=== PATIENT | female | born 1985 | race Caucasian/White ===

== ENCOUNTER 2020-03-17 21:58 | Emergency (ER) | payer SELFPAY ==
[2020-03-17 22:05] VITALS: BP 137/92; PULSE 102; RESP 17; TEMP 36.6; O2SAT 100; BMI 29.5
--- NOTE | 2020-03-17 22:39 | ED_ITS ---
HPI - Wound/Laceration General Chief Complaint: Wound/Laceration Stated Complaint: cut finger Time Seen by Provider: 03/17/20 22:09 Source: patient and family Mode of arrival: Ambulatory Limitations: no limitations History of Present Illness HPI narrative: Patient here with nova. Complains of laceration to the left ring finger 11 hours ago. Using a knife to cut bait. Denies any numbness or tingling. Is in need of tetanus shot. Denies does note test. Bleeding controlled. Based visualized. No foreign body no tendon or muscle or bony injury seen. 1.5 cm linear laceration just proximal to the PIP joint laterally Related Data Previous Rx's Medication Instructions Recorded cephalexin 500 mg PO TID #15 cap 03/17/20 Allergies Allergy/AdvReac Type Severity Reaction Status Date / Time No Known Drug Allergies Allergy Verified 03/17/20 22:07 Review of Systems Review of Systems Narrative: GENERAL: Denies chills, fatigue, malaise, fever, sweats. MUSCULOSKELETAL: denies weakness, joint pain, or bony pain SKIN: Denies rash, skin lesions NEUROLOGIC: Denies weakness, numbness or tingling PSYCHIATRIC: No concerning psychosocial issues. ROS Unobtainable: All systems reviewed & are unremarkable except as noted in HPI and below Patient History Social History Smoking Status: Current every day smoker Smoking Status: Current every day smoker alcohol intake frequency: holidays/special occasions only Substance Use Type: does not use Exam Narrative Exam Narrative: GENERAL: patient appears stated age. Well-nourished, well- developed patient, in no distress, not toxic HEAD: Atraumatic. Normocephalic. EXTREMITIES: No edema or joint tenderness. Examination left hand. There is isolated injury to the left ring finger. 1.5 cm superficial laceration laterally just proximal to the PIP joint of the ring finger. Bleeding controlled. Hemostasis obtained. Bloodless field. Based visualized. No foreign body no bone or tendon or muscle injury seen. Has full flexion extension actively isolated MCP and PIP and PIP joints. Light touch intact to finger NEURO: AOx4. SKIN: No rash or erythema of visible areas PSYCH: Not anxious, is cooperative Initial Vital Signs Initial Vital Signs: Vital Signs Temperature 97.8 F 03/17/20 22:05 Pulse Rate 102 H 03/17/20 22:05 Respiratory Rate 17 03/17/20 22:05 Blood Pressure 137/92 H 03/17/20 22:05 Pulse Oximetry 100 03/17/20 22:05 Procedures Laceration Repair Laceration 1: Site: other (Left ring finger) Side (If applicable): left Size (cm): 1.5 Description: linear Depth: simple, single layer Local Anesthetic: lidocaine 1% Amount of anesthesia used (mL): 2 Pre-repair: wound explored, irrigated extensively and deep structures intact Skin layer closed with: nylon Size (cm): 5-0 Number of sutures: 4 Technique: simple, interrupted Course Orders Ordered: Discontinued Medications Bacitracin (Bacitracin) 1 applic TOP NOW ONE Stop: 03/17/20 22:40 Last Admin: 03/17/20 22:47 Dose: 1 applic Documented by: LAN Cephalexin HCl (Keflex) 500 mg PO NOW ONE Stop: 03/17/20 22:39 Last Admin: 03/17/20 22:47 Dose: 500 mg Documented by: LAN Diphtheria/Tetanus/Acell Pertussis (Adacel) 0.5 ml IM .ONCE ONE Stop: 03/17/20 22:39 Last Admin: 03/17/20 22:47 Dose: 0.5 ml Documented by: LAN Vital Signs Vital signs: Vital Signs - 8 hr 03/17/20 22:05 Temperature 97.8 F Pulse Rate 102 H Respiratory Rate 17 Blood Pressure 137/92 H Pulse Oximetry 100 MDM - Wound/Laceration Differential Diagnosis Differential diagnosis: Likely laceration MDM Narrative Medical decision making narrative: No imaging indicated. Low suspicion for foreign body or bone injury. Discharge Plan Departure Patient Disposition: Home Clinical Impression: Laceration Discharge Date/Time: 03/17/20 22:55 Instructions: DI for Laceration Repair Activity Restrictions/Additional Instructions: See family doctor in 7-9 days or return here for removal of 4 stitches in left ring finger. Change dressing twice a day with warm soap and water and then topical antibiotic. Place in bulky dressing to prevent movement the finger. Return if worse or if any fever chills or discharge from the wound or discoloration of the finger. Return if any questions or concerns. Prescriptions: New cephalexin 500 mg capsule 500 mg PO TID Qty: 15 RF: 0 Referrals: [facility] [Outside]
[2020-03-17] MEDS: cephALEXin 250 MG CAPSULE 500 MG PO (22:47)
[2020-03-17] MEDS: TET,DIPH,PERTUSS(ACELL),VAC/PF 0.5 ML SYRINGE IM (22:47)
[2020-03-17] MEDS: BACITRACIN OINT 0.9 GM PCKT 1 APPLIC TOP (22:47)
== END 2020-03-17 22:55 | disposition home or self-care (01) ==
PROVIDERS: Emergency Provider Emergency Medicine
DX: S61.215A Laceration without foreign body of left ring finger without damage to nail, initial encounter (principal); W26.0XXA Contact with knife, initial encounter; Z23 Encounter for immunization
CPT/HCPCS: 12001; 90471; 99283; 99284; 90715

== ENCOUNTER → 2023-08-12 17:41 | Outpatient (CLI) | payer MEDICAID, SELFPAY ==
--- NOTE | 2023-08-12 17:45 | DI.RAD.S_ITS ---
PROCEDURE: XR KNEE LT 3V INDICATIONS: fall 4 weeks ago, resolving hematoma medial side TECHNIQUE: 3 views of the knee were acquired. COMPARISON: None. FINDINGS: Bones: No fractures or dislocations. No suspicious bony lesions. Soft tissues: No joint effusion. No suspicious soft tissue calcifications. IMPRESSION: No acute bony abnormality or significant effusion. If there is persistent clinical concern for internal soft tissue derangement, consider further evaluation with MRI. Dictated by: Navneet Morataya M.D. on 08/12/2023 at 18:22 Approved by: Navneet Morataya M.D. on 08/12/2023 at 18:23
== END ==
LOC: DI 17:44
PROVIDERS: Visit Provider Physician Assistant
DX: S80.02XA Contusion of left knee, initial encounter (principal); W19.XXXA Unspecified fall, initial encounter
CPT/HCPCS: 73562